=== PATIENT | female | born 1955 | race Caucasian/White ===

== ENCOUNTER 2016-10-28 14:40 | Emergency (ER) | payer OTHER ==
[~2016-10-28] VITALS: Ht 160 cm; Wt 61.4 kg
[~2016-10-28 14:40] MED LIST: ALBU8.5H4 IH; AMLO-39 PO; LEVO750T9 PO; LOVA10TA PO; METR500T PO; NAPR500T PO; ONDA8TAB10 PO
[2016-10-28 15:28] VITALS: BP 97/60; PULSE 83; RESP 16; O2SAT 98
[2016-10-28 16:14] LABS: BASOPHILS % (AUTO) 0.5 % (0-3); EOSINOPHILS % (AUTO) 1.6 % (0-5); MONOCYTES % (AUTO) 8.1 % (4-12); Mean Corpuscular Hemoglobin 34.4 pg (27.0-35.0); Mean Corpuscular Volume 100.7 fL (81-100); NEUTROPHILS % (AUTO) 75.2 % (40-74); Platelet Count 151 bil/L (150-400)
[2016-10-28 16:33] LABS: Magnesium 1.8 mg/dL (1.6-2.6)
--- NOTE | 2016-10-28 18:22 | ED.REPORT ---
HPI-Abd Pain F 40 and Over Date of Service Oct 28, 2016 ED Provider: Edvin Fortune MD Pt is a 60 y/o female w/ a hx of diverticulitis, HTN, hyperlipidemia, presenting to the ED c/o N/V/D onset 3 days ago. On the day of onset, she woke up and had diarrhea and an episode of vomiting with associated bilateral leg cramping. The next day she felt generally unwell. Last night, she had diarrhea and vomited again. Today she is experiencing bloody diarrhea, lower abdominal pain, decreased urination, subjective fever, chills. Pt denies flank pain, dysuria, cough. Nursing Notes Stated Complaint: ABDOMEN PAIN Chief Complaint: Female Abdominal Pain Nursing Notes Reviewed: Yes Allergies: Coded Allergies: codeine (Verified Adverse Reaction, Intermediate, itching, 10/28/16) hydrocodone (Verified Adverse Reaction, Intermediate, itching, 10/28/16) Uncoded Allergies: OPIATES (Allergy, Intermediate, Rash, unable to walk, 02/15/16) Scheduled Albuterol-Expunged Drug, Do Not Renew! (Albuterol-Expunged Drug, Do Not Renew!) 8.5 Gm Hfa.aer.ad 2 PUFFS IH Q4 AmLODIPine-Expunged Drug, Do Not Renew! (AmLODIPine-Expunged Drug, Do Not Renew! ) 5 Mg Tablet 5 MG PO BID Levofloxacin (Levaquin) 750 Mg Tablet 750 MG PO DAILY Metronidazole (Flagyl) 500 Mg Tablet 500 MG PO Q8H Ondansetron ODT (Ondansetron ODT) 8 Mg Tab.rapdis 8 MG PO QID Scheduled PRN Naproxen (Naprosyn) 500 Mg Tablet 500 MG PO BID PRN PRN For Pain Ondansetron ODT (Zofran ODT) 4 Mg Tablet 4 MG PO Q4H PRN PRN For Nausea Miscellaneous Medications Lovastatin-Expunged Drug, Do Not Renew! (Lovastatin-Expunged Drug, Do Not Renew! ) 10 Mg Tablet 10 MG PO General Time Seen by MD: 18:21 Chief Complaint Other (NVD) Hx Obtained From: Patient Arrived By: Walk-in Sudden in Onset?: No Onset Occurred: 3 days ago Symptom Duration: Since onset Progression since Onset: Intermittent Location: : Abdomen lower Quality: Burning, Painful Severity: Current: Moderate Severity: Maximum: Moderate Similar Sx Previous: Yes Past Medical History Past Medical History Pt reports polyps Diverticulosis Tobacco abuse Reports: Hyperlipidemia, Hypertension Past Surgical History Left knee scope x2 Cyst removal Reports: Appendectomy, Hysterectomy Family History Pt reports hx of IBS on maternal side. Smoking History Current Every Day Smoker Social History Alcohol Use: "Social" Ambulatory Status Independent Review of Systems Constitutional: Reports: Chills, Fever Respiratory: Denies: Non-productive cough, Shortness of breath Cardiovascular: Denies: Chest pain, Dyspnea on exertion GI: Reports: Abdominal pain, Bloody/tarry stool, Diarrhea, Nausea, Vomiting Female: Reports: Urination decreased, Denies: Dysuria Complete sys rev & neg: except as marked. Physical Exam Vital Signs Vital Signs (First) Date Time Temp Pulse Resp B/P Pulse Ox O2 Delivery O2 Flow Rate FiO2 10/28/16 15:28 37.3 83 16 97/60 98 Room Air Initial VS: Reviewed, Vital signs abnormal Head / Eyes: Atraumatic, Normocephalic, PERRL ENT: Mucous membranes moist, Conjunctiva normal, No scleral icterus Neck: Supple, Full range of motion Extremities: Vascular intact, Neuro intact, No swelling, No tenderness Skin: Warm, Dry, No cyanosis Neurologic: Alert, Oriented, Nonfocal Psychiatric: Mood/affect normal, Behavior normal, Normal thought content General/Constitutional: Awake, Alert, No acute distress, Cooperative, Not toxic appearing Respiratory / Chest: Atraumatic, Breath sounds NL, Breath sounds = bilat, No respiratory distress, No rales, No rhonchi, No wheezing, No retractions, No stridor, No chest tenderness, No chest wall deformity, No crepitus Cardiovascular: Heart rate NL, Regular rhythm, Heart sounds NL, No gallop, No murmurs, No rubs, Cap refill not delayed, Peripheral circulation NL Abdomen: Atraumatic, Soft, No guarding, No rebound, No distention, No palpable mass Tenderness/Guarding/Rebound: Positive: Tender LLQ... (Moderate), Tender RLQ... (Moderate), Tender suprapubic (moderate) Back: Full range of motion, Painless range of motion, No CVA tenderness Rectum / Perineum: Blood - occult heme -, No gross blood Interpretation & Diagnostics Lab Results Interpretation Result Diagram: 10/28/16 1602 10/28/16 1602 Test 10/28/16 16:02 White Blood Count 5.7th/mm3 (3.8-10.1) Red Blood Count 4.10mil/mm3 (3.90-5.20) Hemoglobin 14.1g/dL (12.0-15.6) Hematocrit 41.3% (35.0-46.0) Mean Corpuscular Volume 100.7fL (81-100) Mean Corpuscular Hemoglobin 34.4pg (27.0-35.0) Mean Corpuscular Hemoglobin Concent 34.1% (32.0-37.0) Red Cell Distribution Width 13.1% (12.3-15.4) Platelet Count 151bil/L (150-400) Neutrophils (%) (Auto) 75.2% (40-74) Lymphocytes (%) (Auto) 14.4% (14-46) Monocytes (%) (Auto) 8.1% (4-12) Eosinophils (%) (Auto) 1.6% (0-5) Basophils (%) (Auto) 0.5% (0-3) Sodium Level 134mEq/L (134-144) Potassium Level 4.1mEq/L (3.5-5.2) Chloride Level 102mEq/L (97-108) Carbon Dioxide Level 16mmol/L (18-29) Blood Urea Nitrogen 13mg/dL (6-24) Creatinine 0.85mg/dL (0.57-1.00) Estimat Glomerular Filtration Rate 98mL/min (>59) Glucose Level 118mg/dL (60-99) Calcium Level 8.7mg/dL (8.5-10.1) Magnesium Level 1.8mg/dL (1.6-2.6) Total Bilirubin 0.3mg/dL (0.0-1.2) Aspartate Amino Transf (AST/SGOT) 42U/L (0-50) Alanine Aminotransferase (ALT/SGPT) 26U/L (0-32) Alkaline Phosphatase 99U/L (25-165) Total Protein 7.3g/dL (6.4-8.4) Albumin 4.3g/dL (3.4-5.0) Lipase 40U/L (13-60) Hold South Top Tube Received (Received) CT Abd / Pelvis Interpretation IMPRESSION: 1. No acute intra-abdominal findings. The appendix is not visualized; however there are no ancillary findings to suggest acute appendicitis. 2. Diverticulosis. No acute diverticulitis. Dictated by: Lynn Aden M.D. on 10/28/2016 at 19:24 Approved by: Lynn Aden M.D. on 10/28/2016 at 19:28 Study type: Abdominal CT IV contrast Re-Eval/Medical Decision Med Decision/Clinical Course 10-year-old female history of diverticulitis presenting with nausea vomiting diarrhea for several days. Complaining of lower abdominal pain diffuse. Vital signs stable. Labs are stable. Blood cell count is normal. CT abdomen and pelvis shows no acute pathology. She does have diverticulosis but no diverticulitis. Urine negative for infection. Likely gastroenteritis, viral. Discharged with Zofran. Return precautions given. Re-Evaluation/Progress : Time of Eval: 19:44 Re-Evaluation/Progress Note: Pt rechecked. Informed pt of plan for treatment. Pt understands and agrees with plan for treatment. F/U instructions and RTER warnings given. All questions addressed. Counseled Regarding: Diagnosis, Lab results, Need for follow-up, When/why to return to ED Discharge & Departure Primary Impression: Gastroenteritis Additional Impression: Diverticulosis Diverticulosis site: unspecified location Diverticulosis bleeding: diverticulosis without bleeding Qualified Code: K57.90 - Diverticulosis of intestine, part unspecified, without perforation or abscess without bleeding Disposition: Home Discharge Condition All VS Reviewed: Yes Condition: Stable Patient Instructions: Gastroenteritis (ED) Additional Instructions: The CT scan today was normal. It showed diverticulosis without diverticulitis. Your symptoms are likely caused by viral gastroenteritis, an infection of the intestines. Take Zofran every 4 hours as needed for nausea/vomiting. Drink lost of fluids and get plenty of rest. Eat soups, broths, rice, noodles, etc. Return to the emergency department for persistent uncontrolled vomiting, uncontrolled diarrhea, high fever, severe pain, lightheadedness, passing out, or for other concerning symptoms. Follow-up with your doctor early next week. Referrals: Sol Aquino MD (PCP) Scribe Attestation Portions of this note were transcribed by Casa Killian. I, Dr. Fortune personally performed the history, physical exam and medical decision-making; I reviewed and confirmed the accuracy of the information in the transcribed note. Signed by Zack Dan, 10/28/16 - 1899 copies to: Sol Aquino MD, Ben M MD Oct 28, 2016 18:22 CASA KILLIAN Oct 28, 2016 18:23
[2016-10-28] MEDS ORDERED: 0.9% Sodium Chloride 1,000 ML IV ONE (18:35)
[2016-10-28] MEDS ORDERED: Ondansetron 2 mg/mL 2 mL Inj IVPUSH PRN (18:35)
--- NOTE | 2016-10-28 19:30 | DRSVH ---
PROCEDURE: CT ABDOMEN AND PELVIS WITH CONTRAST ([id number]) INDICATIONS: abd pain TECHNIQUE: After the administration of intravenous contrast, 5 mm thick sections acquired from the diaphragm to the symphysis. 5 mm coronal and sagittal reformats were acquired. For radiation dose reduction, the following was used: automated exposure control, adjustment of mA and/or kV according to patient siz e. COMPARISON: [facility], CT, ABD/PELVIS W/CON (PN), 03/29/2010, 15:12. FINDINGS: Image quality: Excellent. ABDOMEN: Lung bases: Lung bases are clear. Heart size is normal. Solid organs: Liver and spleen are normal in size and enhancement. A low-density cystic lesion is pr esent within hepatic segment VIII decreased in size when compared with the study dated 03/29/10. There is likely a subtle subcentimeter gallstone within the gallbladder fundus. No gallbladder wall thicke madison or pericholecystic fluid. Biliary system is non dilated. Pancreas enhances normally. No adrena l nodules. Kidneys demonstrate normal size and enhancement, without hydronephrosis. Peritoneum and bowel: Bowel loops demonstrate normal wall thickness and caliber. The appendix is not visualized; however there is no discrete right lower quadrant fluid or fat stranding to suggest acut e appendicitis. No free fluid or air. Nodes and vessels: No retroperitoneal or mesenteric adenopathy by size criteria. Aorta and inferior vena cava are normal in size. There are scattered atheromatous calcifications throughout the aorta a nd iliac arteries bilaterally. Miscellaneous: No ventral hernias. PELVIS: Genitourinary: Bladder wall thickness is normal. Miscellaneous: No inguinal hernias or adenopathy. Bones: No suspicious bony lesions. No vertebral body compression fractures. IMPRESSION: 1. No acute intra-abdominal findings. The appendix is not visualized; however there are no ancillary findings to suggest acute appendicitis. 2. Diverticulosis. No acute diverticulitis. Dictated by: Lynn Aden M.D. on 10/28/2016 at 19:24 Approved by: Lynn Aden M.D. on 10/28/2016 at 19:28
[2016-10-28] MEDS ORDERED: ONDA4TAB9 PO (19:49)
[2016-10-28 20:19] VITALS: BP 109/67; PULSE 71; RESP 18; O2SAT 98
== END 2016-10-28 20:20 | disposition home or self-care (01) ==
LOC: SED 14:40
DX: K52.9 Noninfective gastroenteritis and colitis, unspecified (principal); K57.90 Diverticulosis of intestine, part unspecified, without perforation or abscess without bleeding; I10 Essential (primary) hypertension; E78.5 Hyperlipidemia, unspecified; F17.200 Nicotine dependence, unspecified, uncomplicated; Z88.5 Allergy status to narcotic agent
CPT/HCPCS: 36415; 74177; 80053; 83690; 83735; 85025; 96361; 96374; 96375; 99285; J2270; J2405; J7030; Q9967